=== PATIENT | female | born 1945 | race Asian ===

== ENCOUNTER 2020-09-19 20:25 | Emergency (ER) | payer MEDICARE, MEDICAID, SELFPAY ==
[2020-09-19 20:30] VITALS: BP 193/88; PULSE 72; RESP 20; TEMP 36.3; O2SAT 97; BMI 27.4
[2020-09-19 20:34] VITALS: PULSE 80; O2SAT 97
[2020-09-19 20:58] VITALS: BP 161/72; PULSE 68; RESP 19; O2SAT 98
[2020-09-19 21:00] VITALS: BP 156/62; PULSE 64; RESP 18; O2SAT 97
--- NOTE | 2020-09-19 21:03 | ED_ITS ---
HPI - General Adult General Chief complaint: Hypertension Stated complaint: elevated BP Time Seen by Provider: 09/19/20 20:28 Source: patient Mode of arrival: Ambulatory Limitations: no limitations History of Present Illness HPI narrative: 74-year-old female nonsmoker with history of hypertension presents with her daughter and a chief complaint of elevated blood pressure over the course of the day. She took her blood pressure earlier this afternoon and found that it had been elevated into the 180s and she wants to be checked out. She does routinely take antihypertensives and denies any recent change in the d osing and has not missed any of her doses. She denies any symptoms whatsoever such as headache, blurred vision or trouble with speech. She has had no chest pain or shortness of breath. She has had no abdominal pain, nausea or vomiting. She denies numbness, tingling or weakness. She is completely asymptomatic and admits that she is here because the number scared her. Onset (ago): hour(s) Relieving factors: none Exacerbating factors: none Associated symptoms: denies other symptoms Treatments prior to arrival: none Related Data Allergies Allergy/AdvReac Type Severity Reaction Status Date / Time No Known Drug Allergies Allergy Verified 09/19/20 20:48 Review of Systems Constitutional Constitutional: Denies chills, Denies fatigue, Denies fever(s), Denies frequent falls, Denies lethargy and Denies weakness Eyes Eyes: Denies change in vision, Denies eye discharge, Denies irritation and Denies loss of vision ENT Ears, Nose, Mouth, and Throat: Denies change in voice, Denies dizziness, Denies neck pain, Denies sore throat and Denies throat swelling Cardiovascular Cardiovascular: Denies chest pain, Denies irregular heart rhythm, Denies lighth eadedness, Denies palpitations, Denies dyspnea, Denies dyspnea on exertion and Denies orthopnea Respiratory Respiratory: Denies cough, Denies dyspnea, Denies dyspnea on exertion and Denies wheezing Gastrointestinal Gastrointestinal: Denies abdominal pain, Denies change in bowel habits, Denies diarrhea, Denies nausea and Denies vomiting Musculoskeletal Musculoskeletal: Denies neck pain and Denies numbness Integumentary/Breasts Skin/Breast: Denies pruritus, Denies erythema, Denies rash and Denies wounds Neurologic Neurologic: Denies behavioral changes, Denies confusion, Denies dizziness, Denies frequent falls, Denies loss of vision, Denies numbness and Denies weakness Psychiatric Psychiatric: Denies anxiety, Denies behavioral changes, Denies confusion, Denies depression, Denies homicidal ideation and Denies suicidal ideation Endocrine Endocrine: Denies fatigue, Denies flushing and Denies palpitations Hematologic/Lymphatic Hematologic/Lymphatic: Denies easy bruising Allergic/Immunologic Allergic/Immunologic: Denies urticaria, Denies throat swelling and Denies wheezing Patient History Social History Smoking Status: Never smoker Smoking Status: Never smoker Substance Use Type: does not use Exam Narrative Exam Narrative: GENERAL: [74] year old patient appears stated age. Well- nourished, well-developed patient, in mild distress. HEAD: Atraumatic. Normocephalic. EYES: Pupils equal round and reactive. Extraocular motions intact. No scleral icterus. No injection or drainage. ENT: Nose without bleeding, purulent drainage. Throat without erythema, tonsillar hypertrophy or exudate. Airway patent. NECK: Trachea midline. Non tender CARDIOVASCULAR: Regular rate and rhythm without murmurs, gallops, or rubs. RESPIRATORY: Clear to auscultation. Breath sounds equal bilaterally. No wheezes, rales, or rhonchi. GASTROINTESTINAL: Abdomen soft, non-tender, nondistended. EXTREMITIES: No edema or joint tenderness. BACK: Nontender without deformity or crepitance. No flank tenderness. NEURO: AOx3. SKIN: No rash or erythema of visible areas NIH Stroke Scale 1a. LOC: Patient is alert and keenly responsive (0) 1b. LOC Questions: Patient answers both LOC questions accurately (0) 1c. LOC Commands: Patient performs both tasks correctly (0) 2. Best Gaze: Normal (0) 3. Visual: No visual loss (0) 4. Facial palsy: Normal symmetrical movements (0) 5. Motor arm: No drift (0) 6. Motor leg: No drift (0) 7. Limb ataxia: Absent (0) 8. Sensory: Normal (0) 9. Best language: No aphasia; normal (0) 10. Dysarthria: Normal (0) 11. Extinction and inattention: No abnormality (0) NIHSS: 0 Initial Vital Signs Initial Vital Signs: Vital Signs Temperature 97.3 F L 09/19/20 20:30 Pulse Rate 72 09/19/20 20:30 Respiratory Rate 20 09/19/20 20:30 Blood Pressure 193/88 H 09/19/20 20:30 Pulse Oximetry 97 09/19/20 20:30 Course Course Course Narrative: Patient observed for 30 minutes and repeat blood pressure is down in the 150s. She continues to be completely asymptomatic and after extensive discussion regarding importance of follow-up and return precautions she has had her questions answered to her apparent satisfaction. Vital Signs Vital signs: Vital Signs - 8 hr 09/19/20 20:30 09/19/20 20:34 Temperature 97.3 F L Pulse Rate 72 80 Respiratory Rate 20 Blood Pressure 193/88 H Pulse Oximetry 97 97 Discharge Plan Departure Patient Disposition: Home Clinical Impression: Hypertension Instructions: DI for High Blood Pressure Activity Restrictions/Additional Instructions: *You have been diagnosed with [high blood pressure without symptoms. As we discussed this is most appropriately dressed with your primary care provider] *What to do: *Please continue to take your regular medications as directed. [ ] New medication prescriptions sent to your pharmacy: [ ] [ ] New medication written as a paper prescription [x ] No new medications given *Please follow up with your primary care provider in 2-3 days, call for an appointment. Let them know you were seen in the Emergency Department and that we ask that you be seen in follow up. We will electronically transmit a record of today's note if your PCP is in our system *If you do not have a primary care provider please contact the [facility] Resource line at [phone]. They will ask some questions about your medical history and help get you set up with a doctor in the community. *Return to Emergency Department if you should have any new, worsening or concerning symptoms, such as [fever greater than 101 F, shaking chills, worsening pain, persistent vomiting or other bothersome symptoms]
[2020-09-19 21:15] VITALS: BP 149/67; PULSE 68; RESP 18; O2SAT 98
== END 2020-09-19 21:16 | disposition home or self-care (01) ==
PROVIDERS: Emergency Provider Emergency Medicine
DX: I10 Essential (primary) hypertension (principal)
CPT/HCPCS: 99281

== ENCOUNTER → 2021-09-17 14:03 | Outpatient (CLI) | payer MEDICARE, MEDICAID, SELFPAY ==
--- NOTE | 2021-09-17 14:07 | DI.MRI.S_ITS ---
PROCEDURE: MR LUMBAR SPINE WO CON INDICATIONS: Osseous stenosis of neural canal of lumbar region TECHNIQUE: Noncontrast sagittal T1 spin echo and T2 fast echo, sagittal STIR, and T2 fast spin echo through the lumbar spine. In cases with scoliosis, additional coronal T2 fast spin echo may be performed. COMPARISON: None. FINDINGS: Image quality: Excellent. Alignment and Curvature: No plain films are available for comparison, for numbering purposes. Thus, for the purposes of this examination, 5 lumbar type vertebral bodies will be presumed, as denoted on the montage panel. This should be confirmed and correlated with plain films, prior to any lumbar spinal intervention. Mild, roughly 3 mm of retrolisthesis of L2 on L3. Mild, roughly 6 mm of anterolisthesis of L3 on L4. Mild, roughly 7 mm of anterolisthesis of L4 on L5. Roughly 3 mm of retrolisthesis of L5 on S1. Bone Marrow: Marrow is of normal overall signal. No acute vertebral body compression fractures. Mild reactive signal within the endplates of the lumbar and lower thoracic spine. Spinal Cord: Conus medullaris terminates at the L1-L2 disc space level. Visualized cord demonstrates normal signal and size. Paraspinous Soft Tissues: No paravertebral masses. T12-L1: Mild disc height loss and desiccation. Mild facet and ligamentum flavum hypertrophy. No significant canal, or foraminal stenosis. L1-L2: Mild disc height loss and desiccation. Mild diffuse disc bulge with small superimposed broad-based right posterolateral protrusion. Mild facet and ligamentum flavum hypertrophy. Mild epidural lipomatosis. Mild canal stenosis. Mild right greater than left foraminal stenosis. L2-L3: Mild disc height loss and desiccation. Mild diffuse disc bulge with small superimposed broad-based right posterolateral protrusion. Mild facet and ligamentum flavum hypertrophy. Mild epidural lipomatosis. Mild canal stenosis. Mild right foraminal stenosis. No left foraminal stenosis. L3-L4: Moderate disc desiccation. Mild disc height loss and diffuse disc bulge. Moderate facet and ligamentum flavum hypertrophy. Mild epidural lipomatosis. Severe canal stenosis. Moderate bilateral foraminal stenosis. L4-L5: Moderate disc desiccation. Mild disc height loss and diffuse disc bulge. Moderate facet and ligamentum flavum hypertrophy. Severe canal stenosis. Mild bilateral foraminal stenosis. L5-S1: Moderate disc height loss and desiccation. Mild diffuse disc bulge with small superimposed broad-based central protrusion. Mild facet and ligamentum flavum hypertrophy. Mild canal stenosis. Mild bilateral foraminal stenosis. IMPRESSION: 1. Multilevel degenerative disc and facet disease, as well as ligamentum flavum hypertrophy and epidural lipomatosis. 2. Multilevel canal stenoses, worst at L3-L4 and L4-L5, where there are severe canal stenoses. 3. Multilevel foraminal stenoses, worst at L3-L4 where there are moderate foraminal stenoses. 4. 5 lumbar type vertebral bodies were presumed for the current report. Plain films of the lumbar spine are recommended for confirmation, prior to any lumbar spinal intervention. Dictated by: Awa Fortune M.D. on 09/17/2021 at 15:27 Approved by: Awa Fortune M.D. on 09/17/2021 at 16:59
== END ==
PROVIDERS: PCP Internal Medicine; Referring Provider Internal Medicine; Visit Provider Internal Medicine
DX: M99.33 Osseous stenosis of neural canal of lumbar region (principal); M51.36 Other intervertebral disc degeneration, lumbar region; M51.37 Other intervertebral disc degeneration, lumbosacral region; M48.061 Spinal stenosis, lumbar region without neurogenic claudication; M48.07 Spinal stenosis, lumbosacral region
CPT/HCPCS: 72148

== ENCOUNTER → 2021-12-27 15:54 | Outpatient (CLI) | payer MEDICARE, MEDICAID, SELFPAY ==
[2021-12-27 17:08] LABS: Hemoglobin A1C% w Est Avg Glu 5.8 % (4.0-6.0)
== END ==
PROVIDERS: PCP Internal Medicine; Referring Provider Orthopaedic Surgery Orthopaedic Surgery of the Spine; Visit Provider Orthopaedic Surgery Orthopaedic Surgery of the Spine
DX: R73.9 Hyperglycemia, unspecified (principal)
CPT/HCPCS: 36415; 83036

== ENCOUNTER → 2022-01-07 11:50 | Outpatient (CLI) | payer MEDICARE, MEDICAID, SELFPAY ==
[2022-01-07 12:22] LABS: COVID19 -Nasal RAPID Negative (Negative)
== END ==
PROVIDERS: PCP Internal Medicine; Referring Provider Orthopaedic Surgery Orthopaedic Surgery of the Spine; Visit Provider Orthopaedic Surgery Orthopaedic Surgery of the Spine
DX: Z20.822 Contact with and (suspected) exposure to COVID-19 (principal)
CPT/HCPCS: 87635; C9803

== ENCOUNTER 2022-01-09 09:30 | Day surgery (SDC) | payer MEDICARE, MEDICAID, SELFPAY ==
[2021-12-31 13:58] VITALS: BMI 28.1
[2022-01-09] VITALS (11 sets, daily range): BP systolic 117–153; BP diastolic 46–94; PULSE 61–84; RESP 12–20; TEMP 35.1–37.1; O2SAT 96–99; BMI 28.1
--- NOTE | 2022-01-09 | DI.RAD.S_ITS ---
PROCEDURE: XR LUMBAR SPINE 2-3V INDICATIONS: L3-4 L4-5 TLIF TECHNIQUE: 2 intraoperative views of the lumbar spine were acquired. COMPARISON: None. FINDINGS: Intraoperative images are obtained for lumbar interbody spacer placement and posterior fusion. Please see operative report for full details. IMPRESSION: Intraoperative images are obtained for lumbar interbody spacer placement and posterior fusion. Please see operative report for full details. Dictated by: Harman Jordan M.D. on 01/09/2022 at 17:42 Approved by: Harman Jordan M.D. on 01/09/2022 at 17:43
[2022-01-09] MEDS: LACTATED RINGERS 1,000 ML 84 ML IV ×3 (10:13→15:10)
--- NOTE | 2022-01-09 11:14 | PM.PREOP ---
Pre-operative Note COVID-19 COVID-19 status: Negative Result date/Date tested (Pos, Neg/Pending): 01/08/22 Criteria for continued procedure: Expected advancement of disease process, Possibility delay results in more complex future surgery or treatment, Increased loss of function, Continuing or worsening of significant or severe pain, Deterioration of the patient's condition or overall health and Delay expected to result in less-positive ultimate med/surg outcome Interval Note History & Physical reviewed/Exam performed by Physician: Yes Changes to H&P: No
[2022-01-09] MEDS: CEFAZOLIN 2 GM/100 ML PREMIX 100 ML IV (12:05)
--- NOTE | 2022-01-09 12:39 | SUR.OPER ---
Prone on spine table, head in foam head support, padded chest and pelvic supports, gel pad at knees, lower legs supported by pillows; nipples, genitalia and toes free of pressure, arms secured on foam padded arm boards at <90 degrees abduction. Tape over blanket at thigh secured to table.
[2022-01-09] MEDS: BUPIVACAINE LIPOSOME 266 MG/20 ML VIAL INJ (12:46)
[2022-01-09] MEDS: BUPIVACAINE 0.25% (PF) 30 ML, EPINEPHrine 0.3 MG INJ (12:47)
--- NOTE | 2022-01-09 15:54 | PM.OP.1 ---
Operative Date/Time/Diagnoses Date of procedure: 01/09/22 Time of procedure: 12:00 Pre-op diagnosis: 1. 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 L3-4, L4-5 spondylolisthesis Post-op diagnosis: same Procedure & Clinicians Procedure: 1. L3-4, L4-5 Postero-lateral and posterior interbody fusion 2. L3-4, L4-5 interbody cage placement. 3. L3-4, L4-5 decompressive laminectomy with bilateral facetecomies 4. L3-4, L4-5 Posterior segmental instrumentation 5. [place] of bone marrow from iliac crest 6. Utilization of microsurgical technique and operating microscope 7. Utilization of robotic assisted navigation Same procedure as scheduled: Yes Indications: Patient has been having chronic back pain and worsening lumbar radiculopathy. Patient failed multiple conservative management with worsening pain weakness and numbness in her lower extremity. Patient has been having difficulty performing activity of daily living. After discussing risks benefits of treatment options, patient elected proceed with surgery. Surgeon: Chuckie Ludwig Import/Export Specialist: Brenda Bates Click Yes if Unassisted: No Anesthesia Type: General Operative Notes Closure Type: primary Specimen(s): none sent Prosthetic devices, grafts, tissues, transplants, or devices: Globus CREO MIS screws, Rise cages Applied: catheter Estimated Blood Loss (mL): 100 Blood products transfused: none Procedure in detail: Patient was seen in the preoperative area. Risks and benefits of the surgery was discussed with the patient. Informed consent was obtained from the patient and placed in the chart. Surgical site was marked. Patient was taken to the operative room. General anesthesia was administered. Prophylactic antibiotic was given to the patient less than 30 min before the incision was made. Patient was placed into a prone position on the Re[place]undo table. Patient's back was then prepped and draped in the sterile fashion. Time-out was performed at this time. After patient was prepped and draped, patient's PSIS was palpated and marked bilaterally. Small 1 cm incision was made over the PSIS for placement of the reference probes. Two trocar was placed into the PSIS 1 on each side. The reference probe was attached to the trocar of the reference apparatus. At this time the C-arm imaging was used to confirm AP and lateral of L3, L4-L5 vertebrae and merged the C-arm imaging using the [employer] robotic navigation system with the CT of the lumbar spine. After successful merging was completed and confirmed, skin marker was used to poppy out the skin incision using the [employer] robotic arm. Bilateral incision was made at this time. Pre templated trajectory was used and guided using the [employer] robotic navigation system for bilateral L3 L4, L5 pedicle screw placement. This was done by using the robotic arm to guide the high-speed bur to make a cortical entry point. Next a drill was placed also using the robotic arm and guided using the navigation system drilling partially through bilateral L3, L4, L5 pedicles. Next L3, L4, L5 pedicle screws it was pre templated and measured was placed onto the power owner operator tanker truck driver and inserted into the pedicles bilaterally. After all 6 screws were placed C-arm imaging was taken of both AP and lateral to confirm the placement. Excellent placement of the screws were confirmed and a matched precisely with the pre planned screw placement using the navigation system. MARs retractor was inserted using [employer] guidence. Globus MARS retractors was placed inside the incision and docked onto the L3, L4 lamina. Using microsurgical technique and operating microscope, a L3, L4 laminectomy and L3-4, L4-5 facetectomy was performed using a Kerrison rongeur. Patient was found have severe lateral recess and neural foramen stenosis which was fully decompressed after the laminectomy facetectomy. More than 75% of the facets were removed during the process of decompression rendering L3-4, L4-5 level grossly unstable and required a fusion procedure at the same time. The disc space at L3-4, L4-5 was identified, and a total diskectomy was performed at L3-4, L4-5 level. The endplates were decorticated using a rasp and shaver. The total diskectomy and decortication was performed at L3-4, L4-5 level in order to to accomplish a L3-4, L4-5 fusion. The local bone from the laminectomy and facetectomy was saved for local bone grafting. After the total diskectomy and decortication was completed, Trifecta bone graft material was combined with local bone that was harvested earlier. At this time, a separate skin is incision was made over the iliac crest. A Jamshidi needle was inserted into the iliac crest through a separate skin incision. 5 cc of bone marrow aspiration was obtained through the separate skin incision using a Jamshidi needle from the iliac crest. The bone marrow aspiration was combined with local bone and the Trifecta bone grafting material. The bone grafting material was placed into the L3-4, L4-5 interbody space along with expandable cages. One cage each was inserted into the L3-4 L4-5 interbody space along with bone graft material. The cage was expanded to its maximum height using the torque limiting screwdriver. The disc preparation as well as the cage insertion were also performed under navigation guidance. After the cage was placed, AP and lateral C-arm imaging was taken to confirm placement of the cage and excellent position was confirmed. Globus MARS retractor was inserted and docked onto the L3-4, L4-5 posterolateral gutter on the right side. Using the power drill, posterior-lateral decortication was performed at L3-4, L4-5 level until bleeding cortical bone was identified. The remaining bone grafting material was placed into the L3-4, L4-5 posterior lateral gutter he order to accomplish posterolateral fusion at the L3-4, L4-5 level. At this time the tulips were attached to the L3, L4-L5 pedicle screw shanks. After measuring the length of the rods, they were inserted into the tulips of the pedicle screws and locked in place using locking caps and torque limiting screwdriver bilaterally. Total 6 caps and 2 titanium rods was used in order to complete the posterior instrumentation construct. After all the hardware was placed, and confirmed with AP and lateral C-arm imaging, the wound was then irrigated with sterile normal saline and packed with Ray-Beth gauze for 3 min to accomplish hemostasis. After the gauze was removed the deep fascia was closed with #1 Vicryl suture. The subcutaneous layer was closed with 2-0 Vicryl. The skin was closed with skin trini. Patient tolerated the procedure well. There were no complications. Neuro monitoring system was used to monitor patient's neurologic status throughout entire procedure. There was no disturbance of the neural monitoring signals throughout the case. Complications: none Post-operative Condition: stable Disposition: PACU Plan for aftercare: Admit to inpatient hospital
[2022-01-09] MEDS: HYDROMORPHONE 2 MG INJ IV ×2 (16:20→16:31)
[2022-01-09] MEDS: OXYCODONE/ACETAMINOPHEN 5/325 TABLET 1 TAB PO (16:21)
[2022-01-09] MEDS: OXYCODONE IR 5 MG TABLET 10 MG PO ×2 (17:58→21:22)
[2022-01-09] MEDS: ACETAMINOPHEN 325 MG TABLET 650 MG PO (17:59)
[2022-01-09] MEDS: SODIUM CHLORIDE 0.9% 1,000 ML 100 ML IV (17:59)
[2022-01-09] MEDS: carvediloL 12.5 MG TABLET 25 MG PO (21:23)
[2022-01-09] MEDS: DOCUSATE 100 MG CAPSULE PO (21:23)
[2022-01-09] MEDS: SENNOSIDES 8.6 MG TABLET 17.2 MG PO (21:23)
[2022-01-09] MEDS: METFORMIN HCL 500 MG TABLET PO (21:23)
[2022-01-09] MEDS: ATORVASTATIN 20 MG TABLET PO (21:28)
[2022-01-10] VITALS (7 sets, daily range): BP systolic 89–137; BP diastolic 40–60; PULSE 68–97; RESP 16–18; TEMP 36.3–37.1; O2SAT 93–98
[2022-01-10] MEDS: SODIUM CHLORIDE 0.9% 1,000 ML 100 ML IV (04:11)
[2022-01-10 05:31] LABS: Hematocrit 28.3 % (36-46); Hemoglobin 9.6 g/dL (12.0-16.0)
[2022-01-10] MEDS: ACETAMINOPHEN 325 MG TABLET 650 MG PO ×2 (08:52→21:52)
[2022-01-10] MEDS: hydroCHLOROthiazide 25 MG TABLET 12.5 MG PO (08:53)
[2022-01-10] MEDS: DOCUSATE 100 MG CAPSULE PO ×2 (08:54→21:53)
[2022-01-10] MEDS: lisinopriL 20 MG TABLET 40 MG PO (08:54)
[2022-01-10] MEDS: METFORMIN HCL 500 MG TABLET PO ×2 (08:55→21:56)
--- NOTE | 2022-01-10 09:00 | OT.IP.EVAL ---
Current Diagnoses Spondylolisthesis, lumbar region (01/09/22) Spinal stenosis, lumbar region with neurogenic claudication (01/09/22) Surgery Performed Operation Date: 01/09/22 11:15 Actual Procedures p L3-4, L4-5 TLIF w. posterior instrumentation -Robot - Chuckie Ludwig MD Past Medical History (Last Reviewed 01/09/22 @ 08:41 by Juany Herzog, RN) Diabetes HLD (hyperlipidemia) HTN (hypertension) Sciatica Spinal stenosis Surgical History (Last Reviewed 01/09/22 @ 08:41 by Juany Herzog, RN) History of surgery Occupational Therapy Inpatient Evaluation/Re-Eval M1 PT/OT-IP Prior Functional Status Start: 01/10/22 10:02 Freq: NEEDED Status: Active Protocol: Document 01/10/22 09:00 [facility] (Rec: 01/10/22 10:23 [facility] [id number]) Medical Review Prior Functional Status Communication Independent Mobility and Gait Independent with no devices but had pain after taking 20 steps. Activities of Daily Living and IADL's Pt had pain and needing increased time with all ADL and IADL needs. Social History Household Members spouse Living Arrangements House Number of Floors (Floors) Two Floors Number of Stairs To Enter/Railing? Pt's home set up based on her daughter's house in which she will be staying there initially. 2 steps with left rail going up. 7 steps, landing, and another 7 steps with left railing for both sets of stairs to get upstairs to the bedroom/bathroom. Home Environment Standard Height Toilet,Tub/ Shower Home Equipment Front Wheel Walker,Straight Cane Additional Social History Comment Pt daughter Rosaura in the hospital and pt to go to her other's daughter's house , Rosetta to stay with both daughters initially prior to going home. M2 OT-IP Current Condition Start: 01/10/22 10:02 Freq: Status: Active Protocol: Document 01/10/22 09:00 [facility] (Rec: 01/10/22 10:23 [facility] [id number]) Occupational Therapy Current Condition Current Condition Evaluation Date 01/10/22 Treatment Diagnosis S/p L3-4 , L4-5 TLIF Diagnosis Onset Date 01/09/22 M3 OT- IP Subjective and Pain Start: 01/10/22 10:02 Freq: Status: Active Protocol: Document 01/10/22 09:00 [facility] (Rec: 01/10/22 10:23 [facility] [id number]) OT- Subjective Occupational Therapy Visit Type Type Initial Evaluation Visit Start Time 09:00 Visit Stop Time 09:55 Total Visit Minutes 55 Occupational Therapy Visit Comments Patient Comments Pt agreed to get up and pt's daughter in the room for OT eval. OT Pain Assessment Pain When Pain Assessed At Rest Pain Present Pain Present Pain Reported Location Lower Back Intensity 6 Scale Used Numeric (0 - 10) M4 OT- IP ADL's Start: 01/10/22 10:02 Freq: Status: Active Protocol: Document 01/10/22 09:00 [facility] (Rec: 01/10/22 10:23 [facility] [id number]) OT MOX-Puzs-Wvqbadh Comments OT Self-Feeding Comments Pt already finished her breakfast, no issues noted. OT ADL-Grooming Comments OT Grooming Comments Pt refused to do at this time. OT ADL-Oral Care Comments Oral Care Comments Pt refused to do at this time. Pt educated best to spit into a cup or hinge at her hips to best follow her back precautions. OT ADL-Dressing General Eval Lower Body Dressing Ability Maximum Assistance Areas Needing Assistance Socks OT ADL-Toileting General Evaluation Toileting Ability Total Assistance Comments OT Toileting Comments Rich in place. Educated to have wipe, use of brief/pads at night and stand for wiping to best follow her back precautions and increase ease for hygiene needs. OT ADL-Bathing Comments OT Bathing Comments NOt performed. M5 OT- IP IADL's Start: 01/10/22 10:02 Freq: Status: Active Protocol: Document 01/10/22 09:00 [facility] (Rec: 01/10/22 10:23 [facility] [id number]) OT-Instrumental Activities of Daily Living Deficits IADL Deficits Identified Deficits Home Safety Awareness Awareness of Need for Assistance at Home Good Awareness Home Safety Comments Pt is a bit groggy and at this time would be best for her daugthers to assist her for ADL, IADL, and mobility needs. Medication Management Medication Management Comments Daugters to assist as needed. Money Management Money Management Comments Daugters to assist as needed. Meal Preparation Meal Preparation Comments Daugters to assist as needed. Microsoft Infrastructure Consultant [employer] Infrastructure Consultant Comments Daugters to assist as needed. M6 OT- IP Functional Cognition Start: 01/10/22 10:02 Freq: Status: Active Protocol: Document 01/10/22 09:00 [facility] (Rec: 01/10/22 10:23 [facility] [id number]) Cognitive Factors Limiting Selfcare Function Cognitive Ability Level of Alertness Alert,Confusional State Patient Orientation Name Attention Span Ability Capable of Focused Attention, Capable of Sustained Attention Ability to Follow Commands Able to Follow One Step Commands with Increased Time, Able to Follow One Step Commands with Repetition Safety Awareness Decreased Recall of Precautions Problem Solving Ability Unable to Identify Errors, Needs Assist to Identify Solutions Cognitive Comments Cognitive Assessment Comments Pt a bit groggy and drowsy and having difficulty to follow commands for ADl and mobility needs. Pt trying to use the pneumatic hoist operator to get the sock aid over her feet. OT- Vision and Hearing OT- Vision Assessment Visual Acuity Glasses All The Time Visual Attentiveness WFL Occular Pursuits WFL M7 OT- IP Mobility and Balance Start: 01/10/22 10:02 Freq: Status: Active Protocol: Document 01/10/22 09:00 [facility] (Rec: 01/10/22 10:23 [facility] [id number]) OT- Bed Mobility Assessment Rolling Type of Rolling Roll to Right Level of Assistance Moderate Assistance Supine to Sit Supine to Sit Assist Maximum Assistance,1 Person Assistance Scooting Scooting to Edge of Bed Moderate Assistance,1 Person Assistance OT-Transfer Assessment Sit to and From Stand Sit to and from Stand Minimal Assistance,Moderate Assistance,2 Person Assistance Transfers Transfer Ability Minimal Assistance,Moderate Assistance,2 Person Assistance Technique Transfer Destination Bed,Chair Transfer Technique Stand Step Pivot Devices Transfer Assistive Devices Gait Belt,Front Wheeled Walker Comments Mobility Comments BP supine with HOB up 107/34, supin2 105/42, sitting at the edge of the bed 103/62, standing 90/47 and sitting in recliner 114/43. Pt states feeling a little nauseous when sitting and standing, nurse present for mobility needs. MODA to help roll to the right and MAXA for legs and trunk management needs. MODA x1, RAYSHAWN x1 from bed to stand to FWW. MIN/MOD x2 with FWW to transfer to the recliner. Pt needing assist to guide the FWW and for her balance. OT- Balance Assessment Sitting Balance and Reactions Static Sitting Balance Ability Poor Dynamic Sitting Balance Ability Poor Standing Balance and Reactions Static Standing Balance Ability Poor Dynamic Standing Balance Ability Poor Comments Other Balance Tests/Deviations/Treatment Pt needing from CGA to MODA : for her balance while seated on the edge of the bed. While standing on her feet tends to have her weight on her heels. However pt is short adn not able to get her feet on the floor to assist for her balance while seated on the edge of the bed. M8 OT- IP Objective Assessments Start: 01/10/22 10:02 Freq: Status: Active Protocol: Document 01/10/22 09:00 [facility] (Rec: 01/10/22 10:23 [facility] [id number]) OT-Muscle Tone Assessment Muscle Tone WNL Yes M9 OT- IP Assessment and Plan Start: 01/10/22 10:02 Freq: Status: Active Protocol: Document 01/10/22 09:00 [facility] (Rec: 01/10/22 10:23 [facility] [id number]) OT Summary Assessment and Plan Potential Rehabilitation Potential Good Analytic Complexity at Evaluation Low Summary OT Impairments Pain,Strength,Balance, Functional Cognition, Functional Mobility,Grooming, Dressing,Toileting,Bathing, Toilet Transfers,Shower Transfers,Activity Tolerance Progress Towards Goals Slow Progress due to Pain,Slow Progress due to Medical Issues,Slow Progress due to Activity Tolerance Assessment Summary Pt low complexity and main barriers are pain, steps, a bit groggy from medications and needing step by step commands to follow, and now needing extensive assist for ADL and mobility needs. Pt has supportive daughters to assist her. Pending progress and caregiver training, pt hoping to go home. At this time most likely home with 24/ 7 assist. Goals Grooming Goal Independent Dressing Goal Independent Toileting Goal Independent Bathing Goal Independent Toilet Transfer Goal Independent Shower Transfer Goal Independent Patient/Caregiver Education Goal Demonstrate Post-Op Precautions,Caregiver Independent Assisting Patient Days to Meet Goals 10 Frequency of Treatment Frequency Of Treatment Once a Day Treatment Plan OT Treatment Plan ADL Training,Functional Cognition Training,Functional Mobility,Patient/Family Education,Discharge Planning Other Treatment Recommendations and Next caregiver training Treatment Focus Discharge Recommendations OT Discharge Recommendations Home with 24/7 Assist Available,Home vs SNF Other Discharge Recommendations Most likely home with 24/7 assist. Home Equipment Needs BSC,LB dressing equipment, shower chair, hand held shower spray Transportation Needs at Discharge Private Vehicle,Wheelchair/ Cabulance
--- NOTE | 2022-01-10 09:50 | PT.IIE ---
Current Diagnoses Acute posthemorrhagic anemia (01/09/22) Type 2 diabetes mellitus without complications (01/09/22) Spondylolisthesis, lumbar region (01/09/22) Spinal stenosis, lumbar region with neurogenic claudication (01/09/22) Arthrodesis status (01/09/22) Surgery Performed Operation Date: 01/09/22 11:15 Actual Procedures p L3-4, L4-5 TLIF w. posterior instrumentation -Robot - Chuckie Ludwig MD Surgical History (Last Reviewed 01/09/22 @ 08:41 by Juany Herzog RN) History of surgery Medical History (Last Updated 01/10/22 @ 10:34 by Brenda Bates PA-C) Diabetes HLD (hyperlipidemia) HTN (hypertension) Sciatica Spinal stenosis Physical Therapy Inpatient Evaluation/Re-Eval M1 PT/OT-IP Prior Functional Status Start: 01/10/22 12:38 Freq: NEEDED Status: Active Protocol: Document 01/10/22 09:50 [facility] (Rec: 01/10/22 12:47 AB [id number]) Medical Review Prior Functional Status Medical History Reviewed Yes Communication able to make needs known Mobility and Gait pt stated that she is independent with all mobilities and ambulation without AD Social History Household Members spouse Living Arrangements Apartment/Condo Number of Floors (Floors) Two Floors Number of Stairs To Enter/Railing? 2 steps to enter 12 steps R rail to get to bedroom level Home Environment Standard Height Toilet,Tub/ Shower Home Equipment Front Wheel Walker,Straight Cane M2 PT-IP Current Condition Start: 01/10/22 12:38 Freq: NEEDED Status: Active Protocol: Document 01/10/22 09:50 [facility] (Rec: 01/10/22 12:47 AB [id number]) Physical Therapy Current Condition Current Condition Evaluation Date 01/10/22 Treatment Diagnosis s/p L3-4, L4-5 TLIF; difficulty in walking Onset Date 01/09/22 M3 PT-IP Subjective Start: 01/10/22 12:38 Freq: NEEDED Status: Active Protocol: Document 01/10/22 09:50 [facility] (Rec: 01/10/22 12:47 AB [email or web address]) Subjective Physical Therapy Visit Type Type Initial Evaluation Visit Start Time 09:50 Visit Stop Time 10:30 Total Visit Minutes 40 Number of STATION BAGGAGE AGENT Visits 0 Physical Therapy Visit Comments Patient Comments agreeable to do PT M4 PT-IP Mobility and Gait Start: 01/10/22 12:38 Freq: NEEDED Status: Active Protocol: Document 01/10/22 09:50 AB (Rec: 01/10/22 12:47 AB [id number]) PT-Bed Mobility Assessment Rolling Type of Rolling Log Rolling Level of Assist Maximal Assistance Sit to Supine Sit to Supine Maximum Assistance PT-Transfer Assessment Sit to and From Stand Sit to and from Stand Maximum Assistance,1 Person Assistance,Use of Upper Extremities Equipment Transfer Assistive Device Gait Belt,Front Wheeled Walker Orthotic/Prosthetic Devices or Brace: No Transfers Transfer Destination Bed Transfer Technique Stand Step Pivot Transfer Ability Level of Assist Maximum Assistance,1 Person Assistance,Use of Upper Extremities Comments Mobility Comments pt sitting on chair and answers questions but with memory issues. daughter in room and corrected pt's answers/info. pt presented to be restless and with c/o 6/10 pain. pt also is slightly lethargic affecting safety awareness. daughter stated that this is due to the medications. pt completed sit to stand from chair max A and max cues and step transfer to bed max A and max cues. completed log roll sit to supine max A and max cues. positiioned pt in bed. call light and table placed within reach. informed nurse regarding pain and level of alertness. Gait Assessment Comments Gait Comments unable at this time PT-Balance Assessment Sitting Balance and Reactions Static Sitting Balance Ability Good Dynamic Sitting Balance Ability Fair Standing Balance and Reactions Static Standing Balance Ability Poor Dynamic Standing Balance Ability Poor Device Used FWW M5 PT-IP Objective Assessments Start: 01/10/22 12:38 Freq: NEEDED Status: Active Protocol: Document 01/10/22 09:50 AB (Rec: 01/10/22 12:47 AB [id number]) Orientation Orientation/Cognition Level of Alertness Lethargic Orientation Name Language Function Ability No Deficits Noted Safety Awareness Decreased Safety Awareness Memory Description Short Term Impaired,Snf Impaired Gross Range of Motion Lower Extremity ROM Assessment Within Functional Limits Strength Lower Extremity Strength Hip 3+/5 Knee 4-/5 Sensation Assessment Sensation Gross Sensation WNL Muscle Tone Muscle Tone WNL Yes M6 PT-IP Treatment Start: 01/10/22 12:38 Freq: NEEDED Status: Active Protocol: Document 01/10/22 09:50 AB (Rec: 08/25/22 12:47 AB [id number]) Physical Therapy Treatment Education Education Provided Safety M7 PT-IP Assessment and Plan Start: 01/10/22 12:38 Freq: NEEDED Status: Active Protocol: Document 01/10/22 09:50 AB (Rec: 01/10/22 12:47 [id number]) PT Summary Assessment and Plan Potential Rehabilitation Potential Fair Status of Condition at Evaluation Evolving Summary Impairments Pain,ROM,Strength,Balance, Coordination,Sensation,Tone, Cognition,Bed Mobility, Transfers,Gait,Activity Tolerance Assessment Summary pt requiring max A with mobility using FWW and with decrease cognitive level affecting following directions and safety awareness. d/c plan depending on progress but at this time, pt will need SNF rehab. will continue to assess progress. Goals Bed Mobility Goal Standby Assistance Transfer Goal Standby Assistance,Front Wheeled Walker Gait Goal Standby Assistance,Front Wheel Walker Gait Distance 150 Other Goals up/down 12 steps R rail SBA Days to Meet Goals 10 Frequency of Treatment Frequency Of Treatment Twice a Day Treatment Plan Physical Therapy Treatment Plan Bed Mobility Training,Transfer Training,Gait Training, Therapeutic Exercise,Balance Retraining,Post Op Education, Discharge Planning,Hot or Cold Pack,Neuromuscular Re-ed, Coordination Retraining,Manual Therapy Precautions Lumbar Precautions Log Roll,No Twisting,Limit Bending,Lifting Restriction of 10 lbs,Gait Belt above Incisional Area Recommendations To Nursing Amount of Assist Needed 2 Person Assist Discharge Recommendations PT Discharge Recommendations SNF Rehab Transportation Needs at Discharge Wheelchair/Cabulance
--- NOTE | 2022-01-10 10:30 | PM.PNPO.1 ---
Subjective Subjective Date Patient Seen: 01/10/22 Time Patient Seen: 10:30 Interval history: Pt sitting comfortably in chair w/ daughter in room. Has not worked w/ PT yet. Complains of back pain, denies leg pain. No N/V. Exam Vital Signs (past 8 hours): - 01/10/22 06:14 01/10/22 06:00 01/10/22 08:15 Temperature 97.4 F L Pulse Rate 70 68 78 Respiratory Rate 16 Blood Pressure 97/44 L 89/41 L 94/40 L Pulse Oximetry 98 98 Oxygen Flow Rate 0 0 01/10/22 08:54 01/10/22 08:56 Temperature Pulse Rate 78 78 Respiratory Rate Blood Pressure 94/40 L 94/40 L Pulse Oximetry Oxygen Flow Rate Oxygen Delivery Method Room Air Oxygen Flow Rate 0 Narrative Exam Narrative: 5/5 strength in hip flexors, quadriceps, hamstrings, DF, PF, EHL bilaterally. Sensation to light touch intact in BLE. Calves soft, compressible, nontender and without palpable cords or masses. Low back dressing placed intraoperatively is CDI. Objective Labs Result Diagrams: 01/10/22 05:16 Labs: Laboratory Results - last 24 hr 01/10/22 05:16 Hgb 9.6 L Hct 28.3 L PFSH Medical History (Updated 01/10/22 @ 10:34 by Brenda Bates PA-C) Diabetes HLD (hyperlipidemia) HTN (hypertension) Sciatica Spinal stenosis Surgical History (Updated 01/10/22 @ 10:33 by Brenda Bates PA-C) History of surgery Social History household members: spouse Smoking Status: Never smoker alcohol intake: never Assessment & Plan Post-op Assessment and plan (1) S/P lumbar fusion: Assessment and Plan narrative: PT, multiimodal pain control. D/c vaughan. Plan to d/c home w/ family tomorrow if she makes adequate progress w/ PT today and VSS. (2) Acute postoperative anemia due to expected blood loss: Assessment and Plan narrative: BP low, 90s/40s. Will give 500 NS bolus. (3) Diabetes: Assessment and Plan narrative: Fingerstick glucose checks WNL, continue home meds. Postoperative Procedures: Procedures Operation Date: 01/09/22 11:15 Actual Procedure Side Surgeon p L3-4, L4-5 TLIF w. posterior instrumentation -Robot Chuckie Ludwig MD Postoperative day: 1
[2022-01-10] MEDS: SODIUM CHLORIDE 0.9% 500 ML 1000 ML IV (10:57)
--- NOTE | 2022-01-10 12:14 | CM.DANOTE ---
DCP Assessment: Payor: [facility] PCP: MD Ilya Pt is a 76 y.o. F who presented to the hospital for a planned TLIF with Dr. Ludwig. Pt is post op day 1 today and tolerated surgery without complications. Pt admitted to the floor for further evaluation and management of her surgical procedure. Pt to work with PT today and possible anticipated discharge tomorrow 01/11. DCP met with pt this morning bedside to discuss discharge planning needs. Pt sitting up in bed. DCP introduced herself and role. Pt states she lives in an apartment on the second floor with her spouse, Tom. Pt states that she has a daughter, Rosaura, who provides transportation for her as she nor her drive. Pt states that she owns a cane and sometimes uses it at baseline. Pt states that her daughter can stay with pt post recovery. Pt daughter to take pt home via POV when discharged. Pt has no discharge needs at this time. Pt anticipating discharge home tomorrow. White board updated. Pt thankful for the discussion. P: Once pt is medically stable, pt to discharge home via daughter POV. Gemma Evans RN/JAP Discharge Planning/Care Management CM Discharge Assessment Start: 01/10/22 08:21 Freq: Status: Active Protocol: Document 01/10/22 11:36 AJ (Rec: 01/10/22 11:38 [id number]) Discharge Planning Assessment Assigned Director Translation Gemma Evans RN/WAGNER Advance Directives? No History Provided By Patient Prior Living Arrangements Apartment/Condo Household Members spouse Type of transporation used prior to Relies on Others admit Comment Daughter Independent with ADL's Yes Is patient alert and oriented? Yes Caregiver for Another No DME Already Rented / Owned Cane Discharge Plan Home Referrals Initiated None needed Additional Comment At this time. Whiteboard Updated in Patient Room with Yes name and ext. # of Director Translation Comment Instructed to call Review Status In Process Please Provide Date Initial DC 01/10/22 Assessment Was Performed Next Review Type Continued Stay Review Pre-Anesthesia Assessment Start: 12/31/21 13:58 Freq: Status: Complete Protocol: Document 12/31/21 13:58 CAB (Rec: 12/31/21 14:24 CAB [id number]) Pre-Anesthesia Assessment Patient Information Reviewed Via Phone Assessment Assessment Completed With Patient Diagnostic Results BMP/CMP,CBC,EKG Comment Outside labs/ECG scanned, ERENDIRA hernandez @ [facility] 01/07/22 Primary Care Provider Edwardo Zuñiga Seen Specialist in Last 12 Months Yes Specialist Seen Orthopedist Primary Language [place] Preferred Language [place] Financial Data Analyst Required No Height 157.48 cm Weight 69.853 kg Body Mass Index (BMI) 28.1 Hearing Ability Normal Visual Assist Glasses Dentition Type Partial- Lower,Full- Upper Barriers to Learning Language Comment Pt speaks Tagalog and [place], states she prefers [place], minimal barrier Hx Anesthesia Reactions No Hx Family Anesthesia Reaction No Hx Malignant Hyperthermia No Hx Blood Transfusions No Anesthesia Review Requested No alcohol intake never Smoking Status Never smoker Substance Use Type does not use Pain Present Pain Reported Musculoskeletal Symptoms Abnormal Gait,Back Pain, Difficulty Walking,Radiating Pain into Limb History of Falling (Recent or History of No ) Patient is completely paralyzed or No completely immobile Mental Status Oriented to own ability Is patient on oxygen? No Does patient have MAYBERRY/SOB No Hx Sleep Apnea No Currently Taking a Beta Victoriano Yes: Carvedilol Can You Climb a Flight of Stairs Without Yes SOB Hx Chest Pain No Hx SOB No Hx Syncope or Dizziness No Anti-Coagulant Therapy No Has a Tree Loader Meat No Cardiac Testing No Hx Pacemaker/ICD No Pacemaker Rep Required? No Diet Type At Home Regular dysphagia No Urinary Catheter Present No Hx Urinary Self Catheterization No Diabetes Yes: Pt unsure of DM vs pre- diabetes dx, does not check BS at home HgbA1C 5.8 Date 12/27/21 Patient No Lactating No Hx Drug Resistant Organism No Presence of External or Internal Medical No Devices Have you had any close contact with No someone diagnosed with COVID-19? Received a COVID vaccine? Yes Received all doses? Yes Marital Status Lives With spouse Support System Spouse Does the Patient Have Assistance After Yes Surgery Patient Discharge Plan Description Return Home Comment Pt advised 2 day length of stay per surgeon Feels Safe in Current Environment Yes Been Physically Hurt or Threatened By a No Person in Current Environment Do you have thoughts of harming yourself None or others? Are you currently considering suicide? No Do you have a plan to hurt yourself or No Plan others? Do You Have Any Spiritual Beliefs That No May Affect Your HC Choices? Do You Have Any Cultural Practices That No May Affect Your HC Choices? Comment Jose Angel Who Can We Speak to About Patient's Care Family, friends Identifying Code for Release of Patient Declines to [facility] Care Proxy/Next of Kin Rosetta (daughter) Health Care Proxy Emergency Contact Name Rosetta (daughter) Emergency Contact Advance Directives? No Power of Manufacturing Scheduler No PAC Instructions Diabetes instructions,Durable medical equipment,Medications to take/avoid,Nasal antibiotic ,No ETOH/petroleum product on skin DOS,NPO,Pre-surgical wash ,Sturdy shoes/comfortable clothes,Do not bring valuables and remove jewelry
--- NOTE | 2022-01-10 13:19 | PC.NURSE ---
pt tried to get out of bed to use the bathroom, bed alarm was on and alerted nursing, pt had pulled her IV out before getting out of bed. IV intact, not bleeding and pt has not complaints of pain. IV bolus was finished. Pt is 1 person assist to get up and standby when up walking to toilet. Bed alarm placed and call light in reach.
[2022-01-10] MEDS: hydrOXYzine pamoate 25 MG CAPSULE PO (13:32)
--- NOTE | 2022-01-10 13:40 | PT.IPTN ---
Current Diagnoses Acute posthemorrhagic anemia (01/09/22) Type 2 diabetes mellitus without complications (01/09/22) Spondylolisthesis, lumbar region (01/09/22) Spinal stenosis, lumbar region with neurogenic claudication (01/09/22) Arthrodesis status (01/09/22) Surgery Performed Operation Date: 01/09/22 11:15 Actual Procedures p L3-4, L4-5 TLIF w. posterior instrumentation -Robot - Chuckie Ludwig MD Physical Therapy Treatment Note M2 PT-IP Current Condition Start: 01/10/22 12:38 Freq: NEEDED Status: Active Protocol: Document 01/10/22 09:50 AB (Rec: 01/10/22 12:47 AB [id number]) Physical Therapy Current Condition Current Condition Evaluation Date 01/10/22 Treatment Diagnosis s/p L3-4, L4-5 TLIF; difficulty in walking Onset Date 01/09/22 M3 PT-IP Subjective Start: 01/10/22 12:38 Freq: NEEDED Status: Active Protocol: Document 01/10/22 13:40 AB (Rec: 01/10/22 15:40 AB [email or web address]) Subjective Physical Therapy Visit Type Type Treatment Note Visit Start Time 13:40 Visit Stop Time 13:55 Total Visit Minutes 15 Number of SUPERVISOR NURSE Visits 0 Physical Therapy Visit Comments Patient Comments agreeable to do PT but c/o 8/ 10 pain M4 PT-IP Mobility and Gait Start: 01/10/22 12:38 Freq: NEEDED Status: Active Protocol: Document 01/10/22 13:40 AB (Rec: 01/10/22 15:40 AB [email or web address]) PT-Bed Mobility Assessment Rolling Type of Rolling Log Rolling Level of Assist Maximal Assistance Sit to Supine Sit to Supine Maximum Assistance PT-Transfer Assessment Sit to and From Stand Sit to and from Stand Moderate Assistance,Maximum Assistance,1 Person Assistance ,Use of Upper Extremities Equipment Transfer Assistive Device Gait Belt,Front Wheeled Walker Orthotic/Prosthetic Devices or Brace: No Transfers Transfer Destination Bed Transfer Technique Stand Step Pivot Transfer Ability Level of Assist Maximum Assistance,1 Person Assistance,Use of Upper Extremities Comments Mobility Comments pt sitting on the chair. c/o 8/10 pain. talked with nurse and stated that she gave pt vistaril and only pain meds right now is tylenol and pt is not due for one yet. pt agreed to do PT. completed sit to stand mod to max a and max cues and ambulated ~ 3 ft using FWW mod ot max A and max cues and with chair follow. pt requested to go back to bed . completed step transfer to bed mod to max A and max cues. completed log roll sit to supine max A and max cues. positioned pt in bed max A x 2 . call light and table placed wtihin reach. Gait Assessment Gait Gait Assistance Required: Moderate Assistance,Maximum Assistance Distance (Feet) 3 Able to Maintain Weight Bearing Status Yes During Gait Assistive Devices Assistive Device Gait Belt,Front Wheeled Walker Orthotic/Prosthetic Devices or Brace: No Gait Deviations General Gait Pattern Antalgic,Decreased Stride Length,Decreased Feet Clearance Factors Limiting Gait Function Factors Limiting Gait Function Limited Range of Motion,Pain, Poor Balance,Poor Safety Awareness M5 PT-IP Objective Assessments Start: 01/10/22 12:38 Freq: NEEDED Status: Active Protocol: Document 01/10/22 09:50 AB (Rec: 01/10/22 12:47 AB [email or web address]) Orientation Orientation/Cognition Level of Alertness Lethargic Orientation Name Language Function Ability No Deficits Noted Safety Awareness Decreased Safety Awareness Memory Description Short Term Impaired,Transit Driver Impaired Gross Range of Motion Lower Extremity ROM Assessment Within Functional Limits Strength Lower Extremity Strength Hip 3+/5 Knee 4-/5 Sensation Assessment Sensation Gross Sensation WNL Muscle Tone Muscle Tone WNL Yes M6 PT-IP Treatment Start: 01/10/22 12:38 Freq: NEEDED Status: Active Protocol: Document 01/10/22 13:40 AB (Rec: 01/10/22 15:40 AB [email or web address]) Physical Therapy Treatment Education Education Provided Precautions,Weight Bearing Status,Safety M7 PT-IP Assessment and Plan Start: 01/10/22 12:38 Freq: NEEDED Status: Active Protocol: Document 01/10/22 13:40 AB (Rec: 01/10/22 15:40 AB [email or web address]) PT Summary Assessment and Plan Potential Rehabilitation Potential Fair Summary Impairments Pain,ROM,Strength,Balance, Coordination,Sensation,Tone, Cognition,Bed Mobility, Transfers,Gait,Activity Tolerance Progress Towards Goals Slow Progress due to Pain Assessment Summary pt requiring mod to max A with mobility using FWW and unable to tolerate much activity due to c/o increase pain. Pt will need 24/ assist and at this time, will need SNF rehab . Goals Bed Mobility Goal Standby Assistance Transfer Goal Standby Assistance,Front Wheeled Walker Gait Goal Standby Assistance,Front Wheel Walker Gait Distance 150 Other Goals up/down 12 steps R rail SBA Days to Meet Goals 10 Frequency of Treatment Frequency Of Treatment Twice a Day Treatment Plan Physical Therapy Treatment Plan Bed Mobility Training,Transfer Training,Gait Training, Therapeutic Exercise,Balance Retraining,Post Op Education, Discharge Planning,Hot or Cold Pack,Neuromuscular Re-ed, Coordination Retraining,Manual Therapy Precautions Lumbar Precautions Log Roll,No Twisting,Limit Bending,Lifting Restriction of 10 lbs,Gait Belt above Incisional Area Recommendations To Nursing Amount of Assist Needed 2 Person Assist Discharge Recommendations PT Discharge Recommendations SNF Rehab Transportation Needs at Discharge Wheelchair/Cabulance
[2022-01-10] MEDS: OXYCODONE IR 5 MG TABLET PO ×2 (16:42→21:53)
[2022-01-10] MEDS: carvediloL 12.5 MG TABLET 25 MG PO (21:52)
[2022-01-10] MEDS: SENNOSIDES 8.6 MG TABLET 17.2 MG PO (21:53)
[2022-01-10] MEDS: ATORVASTATIN 20 MG TABLET PO (21:53)
[2022-01-11 06:00] VITALS: BP 92/41; PULSE 81; RESP 16; TEMP 36.9; O2SAT 96
--- NOTE | 2022-01-11 07:23 | PM.PNPO.1 ---
Subjective Subjective Date Patient Seen: 01/11/22 Time Patient Seen: 07:24 Interval history: Pt sitting up comfortably in bed, daughter in room. Per PT notes from yesterday, pt demonstrated very little mobility and they recommended SNF. Daughter feels that pt received too high a dose of narcotic pain medication yesterday and that hindered PT progress; pt and daughter are still hopeful that pt will be able to go home. Oxycodone decreased from 10 mg to 5 mg yesterday. Exam Vital Signs (past 8 hours): - 01/11/22 06:00 Temperature 98.4 F Pulse Rate 81 Respiratory Rate 16 Blood Pressure 92/41 L Pulse Oximetry 96 Oxygen Flow Rate 0 Oxygen Delivery Method Room Air Oxygen Flow Rate 0 Narrative Exam Narrative: 5/5 strength in hip flexors, quadriceps, hamstrings, DF, PF, EHL bilaterally. Sensation to light touch intact in BLE. Calves soft, compressible, nontender and without palpable cords or masses. Objective Labs Result Diagrams: 01/10/22 05:16 [facility] Medical History (Updated 01/10/22 @ 10:34 by Brenda Bates PA-C) Diabetes HLD (hyperlipidemia) HTN (hypertension) Sciatica Spinal stenosis Surgical History (Updated 01/10/22 @ 10:33 by Brenda Bates PA-C) History of surgery Social History household members: spouse Smoking Status: Never smoker alcohol intake: never Assessment & Plan Post-op Assessment and plan (1) S/P lumbar fusion: Assessment and Plan narrative: Continue PT. Still hopeful for discharge home tomorrow if she progresses well today. (2) Acute postoperative anemia due to expected blood loss: Assessment and Plan narrative: B/P WNL throughout the day yesterday, low again this morning. Will bolus PRN today if pt remains hypotensive. (3) Diabetes: Assessment and Plan narrative: No glucose checks yesterday as fingersticks were not ordered; will order today ACHS. Continue home meds. Postoperative Procedures: Procedures Operation Date: 01/09/22 11:15 Actual Procedure Side Surgeon p L3-4, L4-5 TLIF w. posterior instrumentation -Robot Chuckie Ludwig MD Postoperative day: 2
[2022-01-11] MEDS: ACETAMINOPHEN 325 MG TABLET 650 MG PO (07:36)
[2022-01-11 08:13] VITALS: BP 119/46; PULSE 78; RESP 18; TEMP 37.1; O2SAT 98
--- NOTE | 2022-01-11 10:26 | PT.IPTN ---
Current Diagnoses Acute posthemorrhagic anemia (01/09/22) Type 2 diabetes mellitus without complications (01/09/22) Spondylolisthesis, lumbar region (01/09/22) Spinal stenosis, lumbar region with neurogenic claudication (01/09/22) Arthrodesis status (01/09/22) Surgery Performed Operation Date: 01/09/22 11:15 Actual Procedures p L3-4, L4-5 TLIF w. posterior instrumentation -Robot - Chuckie Ludwig MD Physical Therapy Treatment Note M2 PT-IP Current Condition Start: 01/10/22 12:38 Freq: NEEDED Status: Active Protocol: Document 01/10/22 09:50 AB (Rec: 01/10/22 12:47 AB [id number]) Physical Therapy Current Condition Current Condition Evaluation Date 01/10/22 Treatment Diagnosis s/p L3-4, L4-5 TLIF; difficulty in walking Onset Date 01/09/22 M3 PT-IP Subjective Start: 01/10/22 12:38 Freq: NEEDED Status: Active Protocol: Document 01/11/22 09:52 KS (Rec: 01/11/22 14:17 KS [id number]) Subjective Physical Therapy Visit Type Type Treatment Note Visit Start Time 09:52 Visit Stop Time 10:26 Total Visit Minutes 34 Notes Pts daughter present for caregiver training Number of ADJUNCT ART HISTORY INSTRUCTOR Visits 1 Physical Therapy Visit Comments Patient Comments Pt agreeable M4 PT-IP Mobility and Gait Start: 01/10/22 12:38 Freq: NEEDED Status: Active Protocol: Document 01/11/22 09:52 KS (Rec: 01/11/22 14:17 [place] [id number]) PT-Bed Mobility Assessment Rolling Type of Rolling Log Rolling,Roll to Left Level of Assist Minimal Assistance Sit to Supine Sit to Supine Minimal Assistance Scooting Scooting to Edge of Bed Contact Guard Assistance PT-Transfer Assessment Sit to and From Stand Sit to and from Stand Contact Guard Assistance,1 Person Assistance,Use of Upper Extremities Equipment Transfer Assistive Device Gait Belt,Front Wheeled Walker Orthotic/Prosthetic Devices or Brace: No Transfers Transfer Destination Chair,Wheelchair Transfer Technique Pt ambulated w/ FWW Transfer Ability Level of Assist Contact Guard Assistance, Minimal Assistance,1 Person Assistance,Use of Upper Extremities Comments Mobility Comments Pt in bed upon arrival w/ daughter in room. Pt able to recall 3/3 spinal precautions. Min A and cues for logroll and sidelying<>sit. Pt ambulated ~20 ft in room and performed marching in place w/ FWW CGA. Pt transported to [facility] stairs in w/c for energy conservation. Pt ascended/descended 6 total steps w/ R hand rail and L BLENDING PLANT OPERATOR first provided by this ADJUNCT ART HISTORY INSTRUCTOR and then by pts daughter. W/c back to room, pt ambulated remaining 30 ft back to chair. She required cues for FWW mgmt and hand placement. Pt states she has 12 steps at daughters house but landing after 6 steps. Pt and daughter feel safe to return home today. Daughter feels capable of instructed her and sister how to assist pt as well. Gait Assessment Gait Gait Assistance Required: Contact Guard Assist,Minimum Assistance,1 Person Assist Distance (Feet) 30 Able to Maintain Weight Bearing Status Yes During Gait Assistive Devices Assistive Device Gait Belt,Front Wheeled Walker Orthotic/Prosthetic Devices or Brace: No Gait Deviations General Gait Pattern Antalgic,Decreased Stride Length,Decreased Feet Clearance Factors Limiting Gait Function Factors Limiting Gait Function Limited Range of Motion,Pain, Poor Balance,Poor Safety Awareness Comments Gait Comments Pt ambulated well w/ FWW but requires occasional cues for safety. Pts daughter able to provide cues and assist. Stair Climbing Assessment Evaluation Level of Assist On Stairs Contact Guard Assistance,1 Person Assistance Devices Stair Climbing Assistive Devices Right Railing Technique/Endurance Stair Climbing Direction Ascend and Descend Stair Climbing Technique Step to Step Number of Steps Climbed 3 Stair Climbing Set # Repetitions (reps) 2 Comments Stair Climbing Comments Pt ascended/descend 6 total steps w/ R hand rail and L BLENDING PLANT OPERATOR w/ step to pattern. Pts daughter was able to provide safe assist and pt and daughter feel safe to complete at home. Pt has 12 steps total but states she can take seated break after 6 steps. PT-Balance Assessment Sitting Balance and Reactions Static Sitting Balance Ability Good Dynamic Sitting Balance Ability Good Standing Balance and Reactions Static Standing Balance Ability Good Dynamic Standing Balance Ability Fair Device Used FWW M5 PT-IP Objective Assessments Start: 01/10/22 12:38 Freq: NEEDED Status: Active Protocol: Document 01/10/22 09:50 AB (Rec: 01/10/22 12:47 AB [id number]) Orientation Orientation/Cognition Level of Alertness Lethargic Orientation Name Language Function Ability No Deficits Noted Safety Awareness Decreased Safety Awareness Memory Description Short Term Impaired,Supervisor Filter Assembly Impaired Gross Range of Motion Lower Extremity ROM Assessment Within Functional Limits Strength Lower Extremity Strength Hip 3+/5 Knee 4-/5 Sensation Assessment Sensation Gross Sensation WNL Muscle Tone Muscle Tone WNL Yes M6 PT-IP Treatment Start: 01/10/22 12:38 Freq: NEEDED Status: Active Protocol: Document 01/11/22 09:52 KS (Rec: 01/11/22 14:17 KS [id number]) Physical Therapy Treatment Education Education Provided Precautions,Weight Bearing Status,Safety Other Treatments Other Treatment Performed completed caregiver training M7 PT-IP Assessment and Plan Start: 01/10/22 12:38 Freq: NEEDED Status: Active Protocol: Document 01/11/22 09:52 KS (Rec: 01/11/22 14:17 KS [id number]) PT Summary Assessment and Plan Potential Rehabilitation Potential Good Summary Impairments Pain,ROM,Strength,Balance, Coordination,Sensation,Tone, Cognition,Bed Mobility, Transfers,Gait,Activity Tolerance Progress Towards Goals Progressing Toward Goals Assessment Summary Pt showed good progress w/ mobility today. Able to recall and adhere to all spinal precautions. Min A for bed mobility, CGA for ambulation, MIn A/BLENDING PLANT OPERATOR for stairs. Completed caregiver training w / pts daughter who was able to provide appropriate assist and cues throughout treatment, including safety cues for pts transfers w/ FWW/hand placement. Pt and daughter feel safe to return home today . Pt will benefit from HHPT to improve strength and functional mobility. Goals Bed Mobility Goal Standby Assistance Transfer Goal Standby Assistance,Front Wheeled Walker Gait Goal Standby Assistance,Front Wheel Walker Gait Distance 150 Other Goals up/down 12 steps R rail SBA Days to Meet Goals 10 Frequency of Treatment Frequency Of Treatment Twice a Day Treatment Plan Physical Therapy Treatment Plan Bed Mobility Training,Transfer Training,Gait Training, Therapeutic Exercise,Balance Retraining,Post Op Education, Discharge Planning,Hot or Cold Pack,Neuromuscular Re-ed, Coordination Retraining,Manual Therapy Precautions Lumbar Precautions Log Roll,No Twisting,Limit Bending,Lifting Restriction of 10 lbs,Gait Belt above Incisional Area Recommendations To Nursing Amount of Assist Needed 1 Person Assist Discharge Recommendations PT Discharge Recommendations Home with 24/ Assist Available,Home Health Transportation Needs at Discharge Wheelchair/Cabulance
[2022-01-11 10:39] VITALS: BP 119/46; PULSE 78
[2022-01-11] MEDS: METFORMIN HCL 500 MG TABLET PO (10:39)
[2022-01-11] MEDS: hydroCHLOROthiazide 25 MG TABLET 12.5 MG PO (10:39)
[2022-01-11] MEDS: DOCUSATE 100 MG CAPSULE PO (10:39)
[2022-01-11 10:40] VITALS: BP 119/46; PULSE 78
--- NOTE | 2022-01-11 11:10 | OT.IP.TRT ---
Current Diagnoses Acute posthemorrhagic anemia (01/09/22) Type 2 diabetes mellitus without complications (01/09/22) Spondylolisthesis, lumbar region (01/09/22) Spinal stenosis, lumbar region with neurogenic claudication (01/09/22) Arthrodesis status (01/09/22) Surgery Performed Operation Date: 01/09/22 11:15 Actual Procedures p L3-4, L4-5 TLIF w. posterior instrumentation -Robot - Chuckie Ludwig MD Occupational Therapy Treatment Note M2 OT-IP Current Condition Start: 01/10/22 10:02 Freq: Status: Active Protocol: Document 01/10/22 09:00 [facility] (Rec: 01/10/22 10:23 [facility] [id number]) Occupational Therapy Current Condition Current Condition Evaluation Date 01/10/22 Treatment Diagnosis S/p L3-4 , L4-5 TLIF Diagnosis Onset Date 01/09/22 M3 OT- IP Subjective and Pain Start: 01/10/22 10:02 Freq: Status: Active Protocol: Document 01/11/22 10:30 [facility] (Rec: 01/11/22 13:21 [facility] [id number]) OT- Subjective Occupational Therapy Visit Type Type Treatment Note Visit Start Time 10:30 Visit Stop Time 11:10 Total Visit Minutes 40 Occupational Therapy Visit Comments Patient Comments Pt wanting to shower and pt's daughter present for caregiver training. Patient/Caregiver Goals To go home. OT Pain Assessment Pain When Pain Assessed During Mobility Pain Present Pain Present Pain Reported M4 OT- IP ADL's Start: 01/10/22 10:02 Freq: Status: Active Protocol: Document 01/11/22 10:30 [facility] (Rec: 01/11/22 13:21 [facility] [id number]) OT [id number] Comments OT Self-Feeding Comments Not at meal time. OT ADL-Grooming Comments OT Grooming Comments Not performed. OT ADL-Dressing General Eval Lower Body Dressing Ability Minimal Assistance Areas Needing Assistance Socks Comments OT Dressing Comments Pt able to practice use of entry level recruiter for underwear and pants management needs. OT ADL-Toileting Comments OT Toileting Comments Pt not having to go at this time. During showering pt not able to reach back enough to wipe and will benefit from use of wet wipes and assist. OT ADL-Bathing General Evaluation Bathing Ability Moderate Assistance Comments OT Bathing Comments Pt not able to comfortably reach her feet to wash and needing assist to wash her feet and back. Suggested pt's daughter to assist with shower and that a shower chair, hand held shower spray and long handled brush will assist improve her independence and safety for showering needs. Pt able to simulate stepping over tub by being able to lift up her legs high enough with assist for balance. Pt's daughter then remembering that her sister's main bathroom has a walk in shower that pt can use. Freq: Status: Active Protocol: Document 01/11/22 10:30 [facility] (Rec: 01/11/22 13:21 [facility] [id number]) Cognitive Factors Limiting Selfcare Function Cognitive Ability Level of Alertness Alert Attention Span Ability Capable of Focused Attention, Capable of Sustained Attention Ability to Follow Commands Able to Follow One Step Commands with Increased Time, Able to Follow One Step Commands with Repetition Safety Awareness Underestimates Need for Assistance Cognitive Comments Cognitive Assessment Comments Pt is a bit impulsive and needing cues to slow down, follow her back precautions especially during bed mobility needs. M7 OT- IP Mobility and Balance Start: 01/10/22 10:02 Freq: Status: Active Protocol: Document 01/11/22 10:30 [facility] (Rec: 01/11/22 13:21 [facility] [id number]) OT- Bed Mobility Assessment Scooting Scooting to Edge of Bed Minimal Assistance OT-Transfer Assessment Sit to and From Stand Sit to and from Stand Contact Guard Assistance Transfers Transfer Ability Standby Assistance,Contact Guard Assistance Technique Transfer Destination Bed,Chair,Shower Stall Devices Transfer Assistive Devices Gait Belt,Front Wheeled Walker Comments Mobility Comments Pt's daughter able to safely paty/doff the gait belt and assist for transfers and mobility needs. Emphasized to be sure during bed mobility for the pt to come down on the left elbow and keep her right hand/arm forwards to prevent from twisting while getting into sidelying and back into the bed. Able to demonstrate proper technique on pt's daughter. OT- Balance Assessment Sitting Balance and Reactions Static Sitting Balance Ability Normal Dynamic Sitting Balance Ability Good Standing Balance and Reactions Static Standing Balance Ability Fair Dynamic Standing Balance Ability Fair Comments Other Balance Tests/Deviations/Treatment Pt much improved with her : balance. At time pt tends to lean backwards on her heels. M8 OT- IP Objective Assessments Start: 01/10/22 10:02 Freq: Status: Active Protocol: Document 01/10/22 09:00 [facility] (Rec: 01/10/22 10:23 [facility] [id number]) OT-Muscle Tone Assessment Muscle Tone WNL Yes M9 OT- IP Assessment and Plan Start: 01/10/22 10:02 Freq: Status: Active Protocol: Document 01/11/22 10:30 [facility] (Rec: 01/11/22 13:21 [facility] [id number]) OT Summary Assessment and Plan Potential Rehabilitation Potential Good Analytic Complexity at Evaluation Low Summary Progress Towards Goals Progressing Toward Goals Assessment Summary Pt much improved today and pt' s daughter participated in caregiver training and independent to assist safely for all ADl and mobility needs . Pt looking to go home today . Goals Grooming Goal Independent Dressing Goal Independent Toileting Goal Independent Bathing Goal Independent Toilet Transfer Goal Independent Patient/Caregiver Education Goal Demonstrate Post-Op Precautions,Caregiver Independent Assisting Patient Days to Meet Goals 5 Frequency of Treatment Frequency Of Treatment Once a Day Treatment Plan OT Treatment Plan ADL Training,Functional Cognition Training,Functional Mobility,Patient/Family Education,Discharge Planning Discharge Recommendations OT Discharge Recommendations Home with 09/12 Assist Available,Home Health Home Equipment Needs BSC,LB dressing equipment, shower chair, hand held shower spray Transportation Needs at Discharge Private Vehicle
[2022-01-11 11:21] VITALS: BP 106/47; PULSE 72; RESP 16; TEMP 36.4; O2SAT 97
--- NOTE | 2022-01-11 14:07 | P.DS_ITS ---
History of Present Illness History of Present Illness Date Patient Seen: 01/11/22 Time Patient Seen: 07:00 Chief complaint: OPB Narrative: Operative Date/Time/Diagnoses Date of procedure: 01/09/22 Time of procedure: 12:00 Pre-op diagnosis: 1. 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 L3-4, L4-5 spondylolisthesis Post-op diagnosis: same Procedure & Clinicians Procedure: 1. L3-4, L4-5 Postero-lateral and posterior interbody fusion 2. L3-4, L4-5 interbody cage placement. 3. L3-4, L4-5 decompressive laminectomy with bilateral facetecomies 4. L3-4, L4-5 Posterior segmental instrumentation 5. Freedom of bone marrow from iliac crest 6. Utilization of microsurgical technique and operating microscope 7. Utilization of robotic assisted navigation Same procedure as scheduled: Yes Indications: Patient has been having chronic back pain and worsening lumbar radiculopathy. Patient failed multiple conservative management with worsening pain weakness and numbness in her lower extremity.? Patient has been having difficulty performing activity of daily living.? After discussing risks benefits of treatment options, patient elected proceed with surgery. Surgeon: Chuckie Ludwig Applications Trainer: Brenda Bates Click Yes if Unassisted: No Anesthesia Type: General Operative Notes Closure Type: primary Specimen(s): none sent Prosthetic devices, grafts, tissues, transplants, or devices: Globus CREO MIS screws, Rise cages Applied: catheter Estimated Blood Loss (mL): 100 Blood products transfused: none Discharge Providers Provider Discharge Date: 01/11/22 Primary care physician: Edwardo Zuñiga MD Consults: 01/09/22 17:18 Consult to Occupational Therapy Evaluate & Treat Comment: Physician Instructions: Evaluate and treat Consult to Physical Therapy Evaluate & Treat Comment: Physician Instructions: Evaluate and Treat 01/11/22 11:06 Consult to Home Health Routine Comment: Reason For Exam: Evaluate and Treat- PT Discharge provider: Brenda Bates PA-C Summary Hospital Course Discharge Diagnosis: s/p TLIF Hospital Course: Please see today's progress note for additional details. Received a message from my office at 1326 today stating that pt is cleared for discharge. Exam Vital Signs (past 8 hours): - 01/11/22 08:13 01/11/22 10:39 01/11/22 10:40 Temperature 98.8 F Pulse Rate 78 78 78 Respiratory Rate 18 Blood Pressure 119/46 L 119/46 L 119/46 L Pulse Oximetry 98 Oxygen Delivery Method Oxygen Flow Rate 0 01/11/22 11:21 01/11/22 12:07 Temperature 97.5 F L Pulse Rate 72 Respiratory Rate 16 Blood Pressure 106/47 L Pulse Oximetry 97 Oxygen Delivery Method Room Air Oxygen Flow Rate 0 Oxygen Delivery Method Room Air Oxygen Flow Rate 0 Narrative Exam Narrative: Please see today's progress note for details. Objective Labs Result Diagrams: 01/10/22 05:16 [facility] Medical History (Updated 01/10/22 @ 10:34 by Brenda Bates PA-C) Diabetes HLD (hyperlipidemia) HTN (hypertension) Sciatica Spinal stenosis Surgical History (Updated 01/10/22 @ 10:33 by Brenda Bates PA-C) History of surgery Social History household members: spouse Smoking Status: Never smoker alcohol intake: never Discharge Assessment & Plan Assessment and Plan Assessment: s/p L3-4, L4-5 transforaminal lumbar interbody fusion w/ posterolateral instrumentation Plan of Treatment: Discharge home. Discharge Plan Discharge Plan Patient Disposition: Home Discharge orders & Medications Discharge Orders: Discharge (Order); Ordered 01/11/22 Ordered By: Brenda Bates Prescriptions: New oxycodone 5 mg Tablet 5 mg PO Q4-6H PRN (Reason: Pain, Severe (7-10)) Qty: 60 0RF docusate sodium 100 mg Capsule 100 mg PO BID PRN (Reason: constipation) Qty: 60 2RF acetaminophen 325 mg Tablet 650 mg PO Q6HR PRN (Reason: Pain, Mild (1-3)) Qty: 240 0RF hydroxyzine pamoate 25 mg Capsule 25 mg PO Q4HR PRN (Reason: muscle spasm) Qty: 90 1RF Continued metformin 500 mg Tablet 500 mg PO BID carvedilol 25 mg Tablet 25 mg PO BID Rx Instructions: must administer with a meal/food atorvastatin 20 mg Tablet 20 mg PO QPM aspirin 81 mg Tablet,Delayed Release (Dr/Ec) 81 mg PO DAILY lisinopril 40 mg Tablet 40 mg PO DAILY hydrochlorothiazide 12.5 mg Tablet 12.5 mg PO DAILY Follow up/Referrals: Chuckie Ludwig MD [Physician] - As previously scheduled (Follow up w/ Madelyn Walters PA-C, on 01/24/2022 @ 1:00 PM at [facility] in [place].) Edwardo Zuñiga MD [Primary Care Provider] - Diet/Activity/Treatments Diet: Diet as Tolerated Activity: No bending more than 90 degrees at the waist. No twisting at the waist. No lifting more than 10 pounds. Cold/Heat Therapy: Ice to back as needed for pain. Skin/Wound/Dressing Care Dressing: May shower; keep dressing as dry as possible. If gauze becomes wet inside, may remove and replace with clean, dry gauze. No bathing or otherwise soaking incisions. No creams, lotions, or ointments to incisions. Visit Report/Discharge Packet Instructions: DI for Transforaminal Lumbar Interbody Fusion Stand Alone Forms: Surgery Discharge Discharge Data Primary Care Provider: Edwardo Zuñiga Attending Provider: Chuckie Ludwig
--- NOTE | 2022-01-11 14:32 | CM.DPC ---
DCP Cont: Per PT/OT, pt needing Home Health. [facility] referral faxed with all required documentation. Pt is medically stable for discharge and will be discharging home today via daughter POV. Daughter states that she is comfortable taking her a shower. Home health PT ordered. No further needs. Gemma Evans, CAMMY/DCP
== END 2022-01-11 15:45 | disposition home or self-care (01) ==
LOC: OR 09:31 → AC 09:32
PROVIDERS: PCP Internal Medicine; Referring Provider Orthopaedic Surgery Orthopaedic Surgery of the Spine; Visit Provider Orthopaedic Surgery Orthopaedic Surgery of the Spine
PROC: (CPT 22633; principal; 2022-01-09 11:15)
DX: M48.062 Spinal stenosis, lumbar region with neurogenic claudication (principal); M43.16 Spondylolisthesis, lumbar region; I12.9 Hypertensive chronic kidney disease with stage 1 through stage 4 chronic kidney disease, or unspecified chronic kidney disease; D62 Acute posthemorrhagic anemia; N18.9 Chronic kidney disease, unspecified; R73.03 Prediabetes
CPT/HCPCS: 22633; 22634; 20939; 63052; 63053; 22853 ×2; 22842; 36415; 72100; 76000; 82962; 85014; 85018; 97116; 97162; 97165; 97530; 97535; C1713; C9290; J0171; J0690; J1170; J2250; J3010

== ENCOUNTER → 2023-09-22 08:25 | Outpatient (CLI) | payer MEDICARE, MEDICAID, SELFPAY ==
[2022-01-09 17:22] VITALS: BMI 28.1
--- NOTE | 2023-09-22 08:28 | DI.MRI.S_ITS ---
PROCEDURE: MR LUMBAR SPINE WO CON INDICATIONS: Spinal stenosis, lumbar region TECHNIQUE: Noncontrast sagittal T1 spin echo and T2 fast echo, sagittal STIR, and T2 fast spin echo through the lumbar spine. In cases with scoliosis, additional coronal T2 fast spin echo may be performed. COMPARISON: [facility], MR, MR LUMBAR SPINE WO CON, 09/17/2021, 14:18. FINDINGS: Alignment and Curvature: There is normal bony alignment. Bone Marrow: L3-4 and L4-5 discectomy and fusion with posterior miguel and screw instrumentation. Spinal Cord: Conus medullaris terminates at the L1 level. Visualized cord demonstrates normal signal and size. Paraspinous Soft Tissues: No paravertebral masses. T12-L1: Normal appearance. L1-L2: Disc space narrowing and circumferential disc bulge . No central or foraminal stenosis L2-L3: Disc space narrowing with disc bulge and hypertrophic facet joints results in moderate central stenosis. Mild bilateral foraminal stenosis. L3-L4: Discectomy and fusion. No central stenosis. No foraminal stenosis L4-L5: Discectomy and fusion. Mild central stenosis present. Moderate right and no left foraminal stenosis L5-S1: Disc space narrowing and hypertrophic facet joints. Mild central stenosis moderate to severe left and no right foraminal stenosis IMPRESSION: Multilevel degenerative disc disease and arthropathy results in varying degrees of central and foraminal stenosis including moderate to severe left foraminal stenosis L5-S1 Approved by: Ritesh Ball M.D. on 09/22/2023 at 13:54
== END ==
PROVIDERS: PCP Internal Medicine; Referring Provider Orthopaedic Surgery Orthopaedic Surgery of the Spine; Visit Provider Orthopaedic Surgery Orthopaedic Surgery of the Spine
DX: M48.062 Spinal stenosis, lumbar region with neurogenic claudication (principal); M48.07 Spinal stenosis, lumbosacral region; M51.36 Other intervertebral disc degeneration, lumbar region; M51.37 Other intervertebral disc degeneration, lumbosacral region; Z98.1 Arthrodesis status; M47.816 Spondylosis without myelopathy or radiculopathy, lumbar region; M47.817 Spondylosis without myelopathy or radiculopathy, lumbosacral region
CPT/HCPCS: 72148